=== PATIENT | female | born 1950 | race Caucasian/White ===

== ENCOUNTER 2019-05-07 10:11 | Observation (INO) ==
--- NOTE | 2019-05-07 10:33 | Emergency Department Note ---
Disposition Clinical Impression: Chest pain Disposition: Admitted As Inpatient Condition: Fair Forms: ED Satisfaction Letter Time of Disposition: 11:41 Chest Pain HPI - General Chief Complaint: ED Chest Pain Stated Complaint: CP Time Seen by Provider: 05/07/19 10:17 Source: patient, family Limitations: no limitations - History of Present Illness HPI Narrative: Patient is 68-year-old female presents to emergency room complaints of chest discomfort. The patient states that she has had in the last 2 evenings. She states it starts the lower chest radiates up into the mid chest and then she feels into the neck and jaw region bilaterally. Patient associates this with no nausea or vomiting, no diaphoresis, she has had some shortness of breath. She denies any cough, she denies any leg pain or swelling. The patient denies any or GI complaints. She denies any fevers or chills. The patient has had a mild headache for the past couple of days. The patient denies any blurred vision. The patient states that she does not have any other cardiac history in the past. Nothing else makes symptoms better or worse. At its worst the pain level was 7. Severity scale (1-10): 0 - Related Data Allergies Allergy/AdvReac Type Severity Reaction Status Date / Time Amoxicillin AdvReac Diarrhea Verified 05/07/19 10:55 Review of Systems: As mentioned per history of present illness and as follows. Constitutional: Negative for chills or fever HENT: Negative for sore throat. Eyes: Negative for visual disturbance Respiratory: Positive for shortness of breath. Cardiovascular: Negative for palpitations. Gastrointestinal: Negative for abdominal pain Genitourinary: Negative for dysuria Musculoskeletal: Negative for back pain. Skin: Negative for rash. Neurological: Negative for focal weakness Psychiatric/Behavioral: Negative for depression Chest Pain PMH - Past Medical History Medical history: Reports: CHF, diabetes, hyperlipidemia, thyroid disease Psychiatric history: Reports: no psych history - Social History Smoking Status: Never smoker Alcohol use: Reports: none Drug use: Reports: none Physical Exam PHYSICAL EXAM Constitutional: Well developed, Well nourished, No acute distress, Non-toxic appearance. HENT: Normocephalic, Atraumatic, Bilateral external ears normal, Oropharynx moist, No oral exudates, Nose normal. Neck- Normal range of motion, No tenderness, Supple. Eyes: PERRL, EOMI, Conjunctiva normal,. Cardiovascular: Regular rate and rhythm without clicks, rubs, gallops or murmurs. Respiratory: Normal breath sounds, No respiratory distress, No wheezing, rhonchi, or crackles. GI: Soft, nontender, no evidence of guarding or peritoneal signs. Bowel sounds are active. Musculoskeletal: Good range of motion in all major joints. No tenderness to palpation or major deformities noted. +5/5 strength noted to all extremities. Integument: Warm, Dry, No erythema, No rash. No edema. Neurologic: Alert & oriented x 3, Normal sensory function, No focal deficits noted. CN II-XII grossly intact. - General Limitations: no limitations General appearance: alert, in no apparent distress Course Vital Signs Temperature 97.6 F 05/07/19 10:20 Pulse Rate 79 05/07/19 10:20 Respiratory Rate 18 05/07/19 10:20 Blood Pressure 179/89 05/07/19 10:20 O2 Sat by Pulse Oximetry 99 05/07/19 10:20 Temperature 97.6 F 05/07/19 10:20 Pulse Rate 79 05/07/19 10:20 Respiratory Rate 18 05/07/19 10:20 Blood Pressure 179/89 05/07/19 10:20 O2 Sat by Pulse Oximetry 99 05/07/19 10:20 Oxygen Delivery Oxygen Delivery Room Air Chest Pain - MDM Narrative Medical decision making narrative: EKG was performed that showed sinus rhythm 75 beats a minute, no ST elevation or depression appreciated. QT intervals are within normal limits. There is T-wave inversions in V1, this is a change from an EKG from 6 years ago. Interpreted by myself. Patient did take a baby aspirin prior to arrival, the patient was given 3 more for full dose aspirin for the day. The patient is pain-free here in the emergency room. The patient does have a negative cardiac workup otherwise, negative x-ray. Patient has O2 saturations in the upper 90s, she is not tachycardic, she has no unilateral leg pain or swelling. Do not believe further PE workup is needed. The patient at this point in time however does have risk factors for coronary artery disease. The patient at this point in time is going to be admitted for further evaluation. Case has been discussed in detail with the hospitalist. The patient will be admitted in stable condition to the floor. Final impression 1. Chest pain, precordial - Lab Data Result diagrams: 05/07/19 10:23 05/07/19 10:23 Lab Results 05/07/19 05/07/19 05/07/19 Range/Units 10:23 10:23 10:23 WBC 5.3 (4.3-11.1) K/mcL RBC 5.22 H (3.82-4.97) M/mcL Hgb 15.2 (11.5-15.4) g/dL Hct 45.8 H (35.3-44.9) % MCV 87.7 (83.0-100.0) fL MCH 29.1 (28.0-33.3) pg MCHC 33.2 (31.6-35.5) g/dL RDW 12.4 (11.5-14.5) % Plt Count 267 (140-400) K/mcL MPV 8.4 L (9.4-12.4) fL Immature Gran % 0.2 (0-4) % Seg Neutrophils % 63.4 % Lymphocytes % 26.6 % Monocytes % 6.2 % Eosinophils % 2.8 % Basophils % 0.8 % Neutrophils # 3.4 (1.6-8.9) K/mcL Lymphocytes # 1.4 (0.6-4.6) K/mcL Monocytes # 0.3 (0.0-1.3) K/mcL Eosinophils # 0.2 (0.0-0.6) K/mcL Basophils # 0.0 (0.0-0.2) K/mcL PT 11.9 (9.4-12.1) Seconds INR 1.0 APTT 29.1 (26.0-36.0) Seconds Sodium 141 (136-145) mEq/L Potassium 3.0 L (3.5-5.1) mEq/L Chloride 98 (98-107) mEq/L Carbon Dioxide 30 H (23-29) mEq/L BUN 13 (8-23) mg/dL Creatinine 0.55 L (0.60-1.20) mg/dL Est GFR ( Amer) > 60 (> 60) Est GFR (Non-Af Amer) > 60 (> 60) BUN/Creatinine Ratio 24 (6-26) Glucose 207 H (70-105) mg/dL Calculated Osmolality 298 (280-300) Calcium 9.4 (8.6-10.3) mg/dL Troponin I < 0.03 (< 0.04) ng/mL Heart Score - Score History: Slightly Suspicious EKG: Non Specific repolarisation Disturbance Age: Greater than 65 Risk Factors: Equal/Greater than 3 risk factor or history of atherosclerotic disease Troponin: Less than normal limit HEART Score Total: 5
[2019-05-07 10:40] LABS: Basophils % 0.8 %; Eosinophils # 0.2 K/mcL (0.0-0.6); Eosinophils % 2.8 %; Hematocrit 45.8 % (35.3-44.9); Hemoglobin 15.2 g/dL (11.5-15.4); Immature Granulocytes % 0.2 % (0-4); Lymphocytes # 1.4 K/mcL (0.6-4.6); Lymphocytes % 26.6 %; Mean Corpuscular HGB Conc 33.2 g/dL (31.6-35.5); Mean Corpuscular Hemoglobin 29.1 pg (28.0-33.3); Mean Corpuscular Volume 87.7 fL (83.0-100.0); Mean Platelet Volume 8.4 fL (9.4-12.4); Monocytes # 0.3 K/mcL (0.0-1.3); Monocytes % 6.2 %; Neutrophils # 3.4 K/mcL (1.6-8.9); Platelet Count 267 K/mcL (140-400); Red Blood Count 5.22 M/mcL (3.82-4.97); Red Cell Distribution Width 12.4 % (11.5-14.5); Segmented Neutrophils % 63.4 %; White Blood Count 5.3 K/mcL (4.3-11.1)
[2019-05-07] MEDS ORDERED: Aspirin 81 MG TAB.CHEW PO SCH (10:45)
[2019-05-07 10:48] LABS: Prothrombin Time 11.9 Seconds (9.4-12.1)
[2019-05-07 10:50] LABS: Activated Partial Thrombo Time 29.1 Seconds (26.0-36.0)
[2019-05-07 11:01] LABS: BUN/Creatinine Ratio 24 (6-26); Blood Urea Nitrogen 13 mg/dL (8-23); Calcium 9.4 mg/dL (8.6-10.3); Carbon Dioxide 30 mEq/L (23-29); Chloride 98 mEq/L (98-107); Glucose 207 mg/dL (70-105); Osmolality,Calculated 298 (280-300); Sodium 141 mEq/L (136-145); Troponin I < 0.03 ng/mL (< 0.04); eGFR For African Americans > 60 (> 60); eGFR For Non-African Americans > 60 (> 60)
[2019-05-07] MEDS ORDERED: *HR* HYDROcodone/Acet 5/325 mg TABLET PO PRN (11:56)
[2019-05-07] MEDS ORDERED: Ondansetron 4 MG/2 ML VIAL IVP PRN (11:56)
[2019-05-07] MEDS ORDERED: Acetaminophen 325 MG TABLET PO PRN (11:56)
[2019-05-07] MEDS ORDERED: Naloxone 0.4 MG/ML INJ IVP PRN (11:56)
[2019-05-07] MEDS ORDERED: Nitroglycerin 0.4 MG TAB.SUBL SL PRN (11:57)
[2019-05-07] MEDS ORDERED: Ipratropium/Albuterol Neb 3 ML IH PRN (11:57)
[2019-05-07] MEDS ORDERED: RANITIDINE HCL 150 MG PO PRN (11:58)
--- NOTE | 2019-05-07 14:53 | Internal Med History&Physical ---
Date of Encounter: 05/07/19 Time of Encounter: 14:49 Internal Medicine - H&P: HPI Chief complaint: Chest pain Admitted From: Emergency Dept Plans for Post Hospital Care: Home History of present illness: Ms. Yip is a 68 year old female with known past medical history of hypertension, diabetes, hypothyroidism and GERD pt presented to ER with intermittent chest pain located sub sternally and radiating to her both jaws. Pt stated she developed b/l chest wall pain a couple of days ago which eventually radiated to her center of chest then to her b/l jaws. Now she has pain at center of chest, more like pressure / discomfort, 6/10 in severity, associated with the mild shortness of breath. She denied any fever / chills / cough. Past Med Surg Social Fam HX - Past Medical History Medical history: CHF, diabetes, hyperlipidemia, thyroid disease Psychiatric history: no psych history - Past Surgical History Surgical History: cholecystectomy, herniorrhaphy, hysterectomy Additional surgical history: Bladder - Social History Smoking Status: Never smoker Smokeless Tobacco Status: No Alcohol use: none Drug use: none - Family History Mother Living Status: Hx Family Cardiac Disorders: Yes Hx Family Endocrine Disorder: Yes (DM) Sister Living Status: Hx Family Cardiac Disorders: Yes Hx Family Endocrine Disorder: Yes (DM) Internal Medicine - H&P: Meds 24 Hour Allergy 10 mg PO PRN PRN 05/07/19 [History] Aspirin 81 mg PO DAILY 05/07/19 [History] Culturelle 05/07/19 [History] Hydrochlorothiazide 12.5 mg PO DAILY 05/07/19 [History] Levothyroxine 0.137 mg PO DAILY 05/07/19 [History] Naproxen 500 mg PO PRN PRN 05/07/19 [History] Potassium Chloride 10 meq PO DAILY 05/07/19 [History] Pravastatin Sodium 20 mg PO DAILY 05/07/19 [History] Ranitidine HCl 150 mg PO PRN PRN 05/07/19 [History] metFORMIN 500 mg PO DAILY 05/07/19 [History] Allergy/AdvReac Type Severity Reaction Status Date / Time Amoxicillin AdvReac Diarrhea Verified 05/07/19 10:55 All Systems PM: A 10-system review of systems was performed and is negative for pertinent findings except as documented above in the HPI. Review of systems: All the systems are reviewed everything is benign except the systems and symptoms I mentioned in the history of present illness - Constitutional Vitals: Temp Pulse Resp BP Pulse Ox 97.9 F 71 16 161/74 95 05/07/19 13:50 05/07/19 13:50 05/07/19 13:50 05/07/19 13:50 05/07/19 13:50 General appearance: Present: A&O X 3, no acute distress, answers questions appropriately Exam: a - Head Head exam: Present: atraumatic, normal inspection - Neck Neck exam general surgery: Present: supple - Respiratory Respiratory exam: Present: decreased breath sounds. Absent: rales, respiratory distress, wheezes, tachypnea - Cardiovascular Cardiovascular exam: Present: RRR, +S1, +S2. Absent: systolic murmur, tachycardia - GI/Abdominal GI/Abdominal exam: Present: normal bowel sounds, soft. Absent: guarding, rebo und, rigid, tenderness - Extremities Exam Extremities exam: Present: normal inspection. Absent: tenderness - Back Exam Back exam: Absent: CVA tenderness (L), CVA tenderness (R) - Neurological Exam Neurological exam: Present: alert, oriented X3 - Psychiatric Psychiatric exam: Present: normal affect, normal mood - Skin Skin exam: Absent: rash Internal Med - H&P Results - Labs CBC & Chem 7: 05/07/19 10:23 05/07/19 10:23 Labs: Short CBC 05/07/19 Range/Units 10:23 WBC 5.3 (4.3-11.1) K/mcL Hgb 15.2 (11.5-15.4) g/dL Hct 45.8 H (35.3-44.9) % Plt Count 267 (140-400) K/mcL Neutrophils # 3.4 (1.6-8.9) K/mcL BMP 05/07/19 10:23 Sodium 141 Potassium 3.0 L Chloride 98 Carbon Dioxide 30 H BUN 13 Creatinine 0.55 L Glucose 207 H Calcium 9.4 Cardiac Enzymes 05/07/19 Range/Units 10:23 Troponin I < 0.03 (< 0.04) ng/mL - Impressions ITS Impressions Chest X-Ray 05/07/19 10:46 IMPRESSION: No acute process. D/ / Tunde Coyne MD / Tunde Coyne MD Interpreting Provider: Tunde Coyne MD - Assessment and Plan (1) Chest pain Current Visit: Yes Status: Acute Assessment and plan: Will admit the pt into Tele for observation Will place pt on telemetry monitor check serial troponin so far negative troponin EKG reviewed - NSR, NO ST T changes will start pt on ASA and Nitro PRN for pain Will check FLP in AM Will get stress test in AM since pt is high risk for ACS Qualifiers: Chest pain type: unspecified Qualified Code(s): R07.9 - Chest pain, unspecified (2) Hypertension Current Visit: Yes Status: Acute Assessment and plan: Fairly controlled resumed all home medications continue close monitoring will give IV hydralazine as needed Qualifiers: Hypertension type: essential hypertension Qualified Code(s): I10 - Essential (primary) hypertension (3) Diabetes mellitus Current Visit: Yes Status: Acute Assessment and plan: Will check hemoglobin A-1 C in a.m. on ADA diet on insulin sliding scale holding oral medications for now Qualifiers: Diabetes mellitus type: type 2 Diabetes mellitus mcc insulin use: without mcc use Diabetes mellitus complication status: without complication Qualified Code(s): E11.9 - Type 2 diabetes mellitus without complications (4) GERD (gastroesophageal reflux disease) Current Visit: Yes Status: Acute Assessment and plan: Resumed home medications Ranitidine Qualifiers: Esophagitis presence: without esophagitis Qualified Code(s): K21.9 - Gastro-esophageal reflux disease without esophagitis - Time Spent With Patient Total time spent is greater than 50% in coordination of care (as documented) at patient's floor/unit and/or counseling patient:
--- NOTE | 2019-05-08 06:54 | Electrocardiograph Report ---
[facility] Test Date: 2019-05-07 Pat Name: Hanh Yip Department: EXAM4 Room: 3B38 Gender: F Pressure Vessel Inspector: : 1950 Requested By: Hema Parmar Order Number: [id number] Reading MD: Erich Clemens Measurements Intervals [place] Rate: 75 P: 17 [place]: 126 QRS: 4 QRSD: 103 T: 23 QT: 395 QTc: 442 Interpretive Statements Sinus rhythm Electronically Signed On 05-08-2019 6:52:24 EDT by Erich Clemens
[2019-05-08] MEDS ORDERED: Aspirin Enteric Coated 81 MG Tablet PO SCH (09:00)
[2019-05-08] MEDS ORDERED: hydroCHLOROthiazide 25 MG TABLET PO SCH (09:00)
[2019-05-08 09:10] LABS: BUN/Creatinine Ratio 30 (6-26); Blood Urea Nitrogen 14 mg/dL (8-23); Calcium 9.2 mg/dL (8.6-10.3); Carbon Dioxide 32 mEq/L (23-29); Chloride 100 mEq/L (98-107); Chol/HDL Ratio 3.6 (0-4.9); Cholesterol 147 mg/dL (< 200); Glucose 127 mg/dL (70-105); HDL Cholesterol 41 mg/dL (40-59); LDL Cholesterol,Calculated 72 mg/dL (0-99); Osmolality,Calculated 294 (280-300); Potassium 3.4 mEq/L (3.5-5.1); Sodium 141 mEq/L (136-145); Triglycerides 170 mg/dL (< 150); eGFR For African Americans > 60 (> 60); eGFR For Non-African Americans > 60 (> 60)
[2019-05-08] MEDS ORDERED: Regadenoson 0.4 MG/5 ML SYRINGE IVP ONE (09:18)
[2019-05-08 12:23] VITALS: BP 175/76
--- NOTE | 2019-05-08 14:24 | Discharge Summary ---
- NOTES TO OUTPATIENT PROVIDER Notes to Outpatient Provider: f/u with PCP in one week. Medication changes: Added Metoprolol 25mg PO BID for your uncontrolled BP. Date of Encounter: 05/08/19 Time of Encounter: 14:22 - Discharge Diagnosis (1) Chest pain Priority: Primary Status: Acute Qualifiers: Chest pain type: unspecified Qualified Code(s): R07.9 - Chest pain, unspecified (2) Hypertension Priority: Secondary Status: Acute Qualifiers: Hypertension type: essential hypertension Qualified Code(s): I10 - Essential (primary) hypertension (3) Diabetes mellitus Priority: Secondary Status: Acute Qualifiers: Diabetes mellitus type: type 2 Diabetes mellitus termite control representative insulin use: without termite control representative use Diabetes mellitus complication status: without complication Qualified Code(s): E11.9 - Type 2 diabetes mellitus without complications (4) GERD (gastroesophageal reflux disease) Priority: Secondary Status: Acute Qualifiers: Esophagitis presence: without esophagitis Qualified Code(s): K21.9 - Gastro-esophageal reflux disease without esophagitis Hospital course: Ms. Yip is a 68 year old female with known past medical history of hypertension, diabetes, hypothyroidism and GERD pt presented to ER with intermittent chest pain located sub sternally and radiating to her both jaws. Pt stated she developed b/l chest wall pain a couple of days ago which eventually radiated to her center of chest then to her b/l jaws. Now she has pain at center of chest, more like pressure / discomfort, 6/10 in severity, associated with the mild shortness of breath. She denied any fever / chills / cough. She was admitted in the hospital and placed on night monitor. Her serial troponin came back as negative. Her EKG did not show any acute ischemic changes. Since patient is high risk for ACS she did go for nuclear stress test, which came back as negative for ischemia/infarction. Her chest pain seems to be atypical probably musculoskeletal. Will d/c her home in stable condition today. Her blood pressure slightly uncontrolled so added metoprolol to her home regimen - Time Spent with Patient Total time spent providing and/or coordinating discharge services: - Discharge Medications Prescriptions: New Metoprolol [Lopressor] 25 mg PO BID #60 tablet Continued Aspirin [Lo-Dose Aspirin EC] 81 mg PO DAILY Pravastatin Sodium [Pravachol] 20 mg PO QPM Potassium Chloride [K-Tab ER] 10 meq PO DAILY Naproxen 500 mg PO BID PRN PRN Reason: Pain Metformin HCl [Fortamet] 500 mg PO DAILY Levothyroxine Sodium [Synthroid] 137 mcg PO QAM Lactobacillus [Culturelle] 1 cap PO DAILY hydroCHLOROthiazide [Hydrochlorothiazide] 12.5 mg PO DAILY Ranitidine HCl [Acid [employer] Instructor] 150 mg PO DAILY PRN PRN Reason: Indigestion Home Medications: Aspirin [Lo-Dose Aspirin EC] 81 mg PO DAILY 05/07/19 [History] Lactobacillus [Culturelle] 1 cap PO DAILY 05/07/19 [History] Levothyroxine Sodium [Synthroid] 137 mcg PO QAM 05/07/19 [History] Metformin HCl [Fortamet] 500 mg PO DAILY 05/07/19 [History] Naproxen 500 mg PO BID PRN 05/07/19 [History] Potassium Chloride [K-Tab ER] 10 meq PO DAILY 05/07/19 [History] Pravastatin Sodium [Pravachol] 20 mg PO QPM 05/07/19 [History] Ranitidine HCl [Acid [employer] Instructor] 150 mg PO DAILY PRN 05/07/19 [History] hydroCHLOROthiazide [Hydrochlorothiazide] 12.5 mg PO DAILY 05/07/19 [History] Metoprolol [Lopressor] 25 mg PO BID #60 tablet 05/08/19 [Rx] Allergies/Adverse Reactions: Allergy/AdvReac Type Severity Reaction Status Date / Time Amoxicillin AdvReac Diarrhea Verified 05/07/19 10:55 Date of admission: 05/07/19 11:52 Primary care physician: Maurilio Cuevas MD - Constitutional Vitals: Temp Pulse Resp BP Pulse Ox 97.7 F 72 18 175/76 92 05/08/19 12:23 05/08/19 12:23 05/08/19 12:23 05/08/19 12:23 05/08/19 12:23 General appearance: Present: A&O X 3, no acute distress, answers questions appropriately Exam: Gen: Alert, awake, Oriented to time,place and person Chest: Diminished breath sounds B/L, No wheezing, No crackles, No rales Heart: S1S2+ RRR No murmurs Abd: Soft, NT, BS +, No organomegaly Ext: No edema, pulses are palpable, No calf tenderness Neuro : No acute focal neuro deficits noticed Skin: No rash. - Patient Status Disposition: Home, Self-Care Condition: Good Overall status at discharge: patient is back to baseline - Discharge Instructions Follow Up With: Maurilio Cuevas MD [Primary Care Provider] - 05/14/19 1:30 pm (appointment will be with Blanca Becerra due to physician being out of the office. ) - Diet and Activity Activity: increase activity as tolerated Diet: low salt diet
== END 2019-05-08 15:20 | disposition home or self-care (01) ==
LOC: EMEROOARM 10:11 → 3BNU 10:11
PROVIDERS: ADMIT Internal Medicine; ATTEND Internal Medicine